=== PATIENT | female | born 1985 | race Caucasian/White ===

== ENCOUNTER → 2017-10-22 13:47 | Outpatient (CLI) | payer MEDICAID | END | disposition home or self-care (01) | LOC: D.US 13:30 | DX: O99.89 Other specified diseases and conditions complicating pregnancy, childbirth and the puerperium (principal); Z3A.00 Weeks of gestation of pregnancy not specified; M32.9 Systemic lupus erythematosus, unspecified ==

== ENCOUNTER → 2017-11-19 12:35 | Outpatient (CLI) | payer MEDICAID | END | disposition home or self-care (01) | LOC: D.US 12:35 | DX: O99.89 Other specified diseases and conditions complicating pregnancy, childbirth and the puerperium (principal); Z3A.00 Weeks of gestation of pregnancy not specified; M32.9 Systemic lupus erythematosus, unspecified ==